=== PATIENT | female | born 1980 | race Caucasian/White ===

== ENCOUNTER 2020-12-01 13:05 | Emergency (ER) | payer MEDICAID, SELFPAY ==
[2020-12-01 13:06] VITALS: BP 103/70; PULSE 95; RESP 16; TEMP 36.6; O2SAT 97; BMI 41.9
[2020-12-01 14:59] VITALS: BP 103/66; PULSE 80; RESP 14; O2SAT 99
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
[2020-12-01 16:55] VITALS: BP 110/65; PULSE 68; RESP 16; TEMP 36.6; O2SAT 98
== END 2020-12-01 16:56 | disposition home or self-care (01) ==
PROVIDERS: Emergency Provider Emergency Medicine; PCP Family Medicine
DX: M54.5 Low back pain (principal)
CPT/HCPCS: 96372; 99281

== ENCOUNTER 2021-12-13 16:49 | Emergency (ER) | payer MEDICAID, SELFPAY ==
[2021-12-13 16:50] VITALS: BP 138/86; PULSE 112; RESP 16; TEMP 37; O2SAT 98; BMI 46.5
[2021-12-13 16:59] VITALS: BMI 46.7
[2021-12-13 17:21] LABS: Alanine Aminotransferase 37 U/L (12-78); Albumin Level 4.1 g/dl (3.5-5.0); Albumin/Globulin Ratio 1.4 (1.1-1.8); Alkaline Phosphatase 111 U/L (38-126); Aspartate Amino Transferase 38 U/L (14-36); Blood Urea Nitrogen 9 mg/dl (7-17); Calcium 9.7 mg/dl (8.4-10.2); Carbon Dioxide 22 mmol/L (22.0-30.0); Chloride 106 mmol/L (98-107); Creatinine Clearance Estimated 117 mL/min (50-200); Estimated Glomerular Filt Rate 111 ml/min (>60); GFR (African American) 134 ML/MIN (>60); Globulin 2.9 g/dL (1.3-3.2); Glucose 122 mg/dl (74-100); Sodium 138 mmol/L (136-145)
[2021-12-13 17:23] LABS: Bilirubin,Total < 0.1 mg/dl (0.2-1.3)
[2021-12-13 17:25] LABS: Basophils # 0.1 K/mm3 (0-0.2); Basophils % 0.5 % (0.1-2.0); Eosinophils # 0.3 K/mm3 (0.0-0.4); Eosinophils % 2.2 % (0.1-12.0); Hematocrit 41.9 % (37.0-47.0); Hemoglobin 13.4 g/dL (12.2-16.2); Lymphocytes # 2.6 K/mm3 (0.7-4.5); Lymphocytes % 22.1 % (10-50); Mean Corpuscular HGB Conc 31.9 g/dL (31.8-35.4); Mean Corpuscular Hemoglobin 26.8 pg (27.0-31.2); Mean Corpuscular Volume 83.9 fl (81-99); Mean Platelet Volume 8.1 fl (7.4-10.4); Monocytes # 0.6 K/mm3 (0.1-1.0); Monocytes % 5.2 % (1.7-9.3); Neutrophils # 8.2 K/mm3 (1.8-7.8); Neutrophils % 70.1 % (37.0-80.0); Platelet Count 301 K/mm3 (142-424); Red Blood Count 4.99 M/mm3 (4.20-5.40); White Blood Count 11.8 K/mm3 (4.8-10.8)
[2021-12-13 17:31] VITALS: BP 113/66; PULSE 95; RESP 17; O2SAT 96
--- NOTE | 2021-12-13 18:46 | PC.NURSE ---
pt states feeling better with meds given
[2021-12-13 19:01] VITALS: BP 120/89; PULSE 87; RESP 17; O2SAT 96
[2021-12-13 20:02] VITALS: BP 120/89; PULSE 87; RESP 16; TEMP 37; O2SAT 97
== END 2021-12-13 20:04 | disposition left against medical advice (07) ==
PROVIDERS: Emergency Provider Emergency Medicine
DX: G43.909 Migraine, unspecified, not intractable, without status migrainosus (principal); Z53.21 Procedure and treatment not carried out due to patient leaving prior to being seen by health care provider
CPT/HCPCS: 80053; 85025; 96374; 96375; 99211; J2405

== ENCOUNTER 2022-06-03 14:01 | Emergency (ER) | payer OTHER, MEDICAID, SELFPAY ==
[2022-06-03 14:15] VITALS: BP 151/94; PULSE 85; RESP 20; TEMP 36.8; O2SAT 98; BMI 45.9
--- NOTE | 2022-06-03 15:08 | EXP.UTC ---
Discharge Plan Disposition Patient Disposition: Home, Self-Care Condition: Good Prescriptions Prescriptions: New methylprednisolone [Medrol (Hiren)] 4 mg tablets,dose pack See Rx Instructions .Route .COMPLEX 6 Days Qty: 21 0RF Rx Instructions: taper pack; amoxicillin-pot clavulanate 875-125 mg Tablet 1 tab PO Q12H Qty: 20 0RF Referrals Follow up/Referrals: Blu Martin [Primary Care Provider] - See instructions Activity Restrictions/Add. Instructions Additional Instructions/Restrictions: *Monitor Temp, Over the counter Motrin or Tylenol as directed/as needed Tylenol every 4 hours and Motrin every 6 hours (as long as your family doctor has told you that you can take it) for fever or pain. and straight to ER if unable to lower temp less than 101.0 after medication given *Warm salt water gargles may help to soothe the throat *Throat Lozenges? *Warm fluids like tea with honey may help to soothe the throat? *Sleep elevated *Humidifier/Vaporizer Follow up IMMEDIATELY for new or worsening symptoms or no Noticeable improvement over the next 48-72 hours. 911 for difficulty breathing or swallowing Clinical Impressions Clinical Impression: Sinusitis Stand Alone Forms Stand Alone Forms: Work/School Release Instructions Patient Instructions: DI for Sinusitis, Sinusitis Discharge ED Provider: Idalmis Silveira [facility] [place] HPI General Stated complaint: cough Mode of Arrival: Ambulatory Source of Information: Patient Limitations: No Limitations Time Seen by Provider: 06/03/22 15:08 Description of Symptoms (Recalled from Triage Doc. by RN): dry cough, sinus HEENT Symptoms (Recalled from RN notes): Yes Resp Symptoms (Recalled from RN notes): No Skin Symptoms (Recalled from RN notes): No MS Symptoms (Recalled from RN notes): No Functional Status (Recalled from RN notes): n/a History of Present Illness Provider Complaint: Patient state that she has been having sinus pain and pressure for over a week and over the weekend she started with dry cough and feeling pressure in her ears so today she was having pressure behind her eyes so she came in to get Related Data Previous Rx's Medication Instructions Recorded amoxicillin 875 mg-potassium 1 tab PO Q12H #20 tabs 06/03/22 clavulanate 125 mg tablet methylprednisolone 4 mg tablets in See Rx Instructions .Route 06/03/22 a dose pack (Medrol (Hiren)) .COMPLEX 6 days #21 tabs Allergies Allergy/AdvReac Type Severity Reaction Status Date / Time No Known Allergies Allergy Verified 06/03/22 14:32 Worker's Comp Is this a Worker's Comp case?: No PFSH PFS Disclaimer: The information contained in this section may have been updated after the patient was seen, as this information can be updated by other users. Social History (Updated 12/13/21 @ 17:08 by Franchesca Pabon RN) Smoking Status: Current every day smoker alcohol intake: never current occupational status: employed Travel in the last 8 weeks: None ROS Obtained: Yes All systems reviewed & no additional complaints except as documented and Yes Systems reviewed as appropriate & no additional complaints except as documented Constitutional Constitutional: Reports system reviewed and no additional complaints, except as documented and Reports as per HPI Eyes Eyes: Reports system reviewed and no additional complaints, except as documented and Reports as per HPI ENT Ears, Nose, Mouth, and Throat: Reports system reviewed and no additional complaints, except as documented, Reports as per HPI, Reports otalgia, Reports sinus pain and Reports sinus pressure Cardiovascular Cardiovascular: Reports system reviewed and no additional complaints, except as documented and Reports as per HPI Respiratory Respiratory: Reports system reviewed and no additional complaints, except as documented, Reports as per HPI, Denies shortness of breath, Denies chest congestion and Reports cough Gastrointestinal Ga
[2022-06-03 15:34] VITALS: BP 151/94; PULSE 85; RESP 18; TEMP 36.8; O2SAT 98
== END 2022-06-03 15:34 | disposition home or self-care (01) ==
PROVIDERS: Emergency Provider Nurse Practitioner; PCP Family Medicine
DX: J32.9 Chronic sinusitis, unspecified (principal)
CPT/HCPCS: 99212; 99213; G0463

== ENCOUNTER 2022-10-18 12:10 | Emergency (ER) | payer MEDICAID, SELFPAY ==
[2022-10-18 12:12] VITALS: BP 137/83; PULSE 91; RESP 18; TEMP 36.7; O2SAT 98; BMI 44.4
--- NOTE | 2022-10-18 12:28 | EXP.UTC ---
Discharge Plan Disposition Patient Disposition: Home, Self-Care Condition: Good Prescriptions Prescriptions: New cephalexin 500 mg capsule 500 mg PO QID Qty: 40 0RF ibuprofen [ibuprofen] 600 mg tablet 600 mg PO Q6HP PRN (Reason: Mild Pain) Qty: 30 0RF No Action methylprednisolone [Medrol (Hiren)] 4 mg tablets,dose pack See Rx Instructions .Route .COMPLEX 6 Days Qty: 21 0RF Rx Instructions: taper pack; amoxicillin-pot clavulanate 875-125 mg Tablet 1 tab PO Q12H Qty: 20 0RF Referrals Follow up/Referrals: Blu Martin [Primary Care Provider] - See instructions Activity Restrictions/Add. Instructions Additional Instructions/Restrictions: Apply warm wet compresses to the affected site three or four times per day for 15 minutes as tolerated for the next few days. Take ibuprofen for pain. We sent in a prescription for some. Take the antibiotics as directed. Follow up with your regular doctor in 24 to 48 hours for a recheck. You have to follow up with your primary care provider for a recheck for anything associated with your breast. GO TO THE ER FOR ANY WORSENING SYMPTOMS Clinical Impressions Clinical Impression: Mastitis, right, acute Instructions Patient Instructions: Mastitis, DI for Mastitis, Ibuprofen, Cephalexin Discharge ED Provider: Mariano Diaz [facility] General Stated complaint: Swelling and sore on right breast Time Seen by Provider: 10/18/22 12:28 History of Present Illness Provider Complaint: She states that, since yesterday, she has had tenderness and warmth of an area on her right breast. She denies any fever/chills/malaise. She is not breast feeding. Related Data Previous Rx's Medication Instructions Recorded amoxicillin 875 mg-potassium 1 tab PO Q12H #20 tabs 06/03/22 clavulanate 125 mg tablet methylprednisolone 4 mg tablets in See Rx Instructions .Route 06/03/22 a dose pack (Medrol (Hiren)) .COMPLEX 6 days #21 tabs cephalexin 500 mg capsule 500 mg PO QID #40 caps 10/18/22 ibuprofen 600 mg tablet 600 mg PO Q6HP PRN Mild Pain #30 10/18/22 tabs Allergies Allergy/AdvReac Type Severity Reaction Status Date / Time No Known Allergies Allergy Verified 06/03/22 14:32 PFSH PFSH Disclaimer: The information contained in this section may have been updated after the patient was seen, as this information can be updated by other users. Social History Smoking Status: Current every day smoker alcohol intake: never current occupational status: employed Travel in the last 8 weeks: None ROS Obtained: Yes All systems reviewed & no additional complaints except as documented Constitutional Constitutional: Denies chills and Denies fever(s) Eyes Eyes: Denies eye discharge ENT Ears, Nose, Mouth, and Throat: Denies dizziness, Denies otalgia and Denies sore throat Cardiovascular Cardiovascular: Denies chest pain Respiratory Respiratory: Denies shortness of breath, Denies chest congestion, Denies cough, Denies stridor and Denies wheezing Gastrointestinal Gastrointestingal: Denies nausea or vomiting Musculoskeletal Musculoskeletal: Reports system reviewed and no additional complaints, except as documented and Denies arthralgias Integumentary/Breasts Skin/Breast: Reports as per HPI and Reports redness Neurologic Neurologic: Denies dizziness and Denies paresthesias Allergic/Immunologic Allergic/Immunologic: Denies wheezing Physical Exam General General appearance: alert and in no apparent distress Head Head exam: atraumatic, normocephalic and normal inspection Eye Eye exam: Present normal appearance, PERRL and EOMI ENT ENT exam: Present normal exam, normal oropharynx, mucous membranes moist, TM's normal bilaterally and normal external ear exam Neck Neck exam: Present normal inspection, full ROM and trachea midline; Absent meningismus or lymphadenopathy Chest Chest inspection: Present symmetric c
[2022-10-18 13:02] VITALS: BP 137/83; PULSE 91; RESP 18; TEMP 36.7; O2SAT 98
== END 2022-10-18 13:03 | disposition home or self-care (01) ==
PROVIDERS: Emergency Provider Nurse Practitioner Family; PCP Family Medicine
DX: N61.0 Mastitis without abscess (principal); F17.210 Nicotine dependence, cigarettes, uncomplicated
CPT/HCPCS: 99212; 99214; G0463

== ENCOUNTER 2022-12-24 07:02 | Emergency (ER) | payer MEDICAID, SELFPAY ==
[2022-12-24 07:03] VITALS: BP 134/85; PULSE 99; RESP 18; TEMP 36.4; O2SAT 98; BMI 50.1
--- NOTE | 2022-12-24 07:15 | PC.NURSE ---
DR GRACIA AT BEDSIDE
--- NOTE | 2022-12-24 07:18 | HMH.EDGENADL ---
Discharge Plan Disposition Patient Disposition: Home, Self-Care Condition: Good Prescriptions Prescriptions: New tbybqrfketkzdqd-nhbnhajdi-AC [Bromfed DM] 2-30-10 mg/5 mL syrup 5 ml PO Q6H PRN (Reason: cold symptoms) Qty: 118 0RF ondansetron 4 mg tablet,disintegrating 4 mg PO Q8H PRN (Reason: nausea and vomiting) 4 Days Qty: 12 0RF No Action methylprednisolone [Medrol (Hiren)] 4 mg tablets,dose pack See Rx Instructions .Route .COMPLEX 6 Days Qty: 21 0RF Rx Instructions: taper pack; amoxicillin-pot clavulanate 875-125 mg Tablet 1 tab PO Q12H Qty: 20 0RF cephalexin 500 mg capsule 500 mg PO QID Qty: 40 0RF ibuprofen [ibuprofen] 600 mg tablet 600 mg PO Q6HP PRN (Reason: Mild Pain) Qty: 30 0RF Referrals Follow up/Referrals: Provider,Referral, MD [Primary Care Provider] - See instructions Activity Restrictions/Add. Instructions Additional Instructions/Restrictions: You were evaluated in the emergency department today. At this time, your COVID, flu, and RSV test are pending. Please picker feeder your prescriptions at the pharmacy and use them as needed for symptoms. Take Tylenol and ibuprofen in addition to these medications as needed for symptoms. I also recommend taking lugx-lei-arxhtsy allergy medication and nasal spray. Follow-up with your primary care provider over the next week to ensure that you are improving. Return to the emergency department for new or worsening symptoms. Clinical Impressions Clinical Impression: Viral URI with cough Stand Alone Forms Stand Alone Forms: Work/School Release Instructions Patient Instructions: DI for Viral Upper Respiratory Infection -- Adult Discharge ED Provider: Muna Daley General Adult HPI General Chief complaint: Upper Respiratory Infection Stated complaint: chest congestion, GARCIA, runny nose Time Seen by Provider: 12/24/22 07:09 Mode of Arrival: Ambulatory Source of Information: Patient Limitations: No Limitations Description of Symptoms (Recalled from ER Triage Doc. by RN): PT REPORT CHEST CONGESTION, RUNNY NOSE, CHILLS, BODYACHES, NAUSE AND DIARRHEA THAT STARTED YESTERDAY History of Present Illness HPI narrative: This patient is a 42-year-old female who denies significant past medical history presenting to the emergency department for evaluation with concern for cough, congestion, headache, runny nose, chills, body aches, nausea, and diarrhea that started yesterday around 1:00 PM. She states that she took Tylenol Cold and sinus medication without good improvement. She states that her last dose of Tylenol was around 3:00 this morning. Nothing seems to make her symptoms better or worse. No other concerns noted at this time. Related Data Previous Rx's Medication Instructions Recorded amoxicillin 875 mg-potassium 1 tab PO Q12H #20 tabs 06/03/22 clavulanate 125 mg tablet methylprednisolone 4 mg tablets in See Rx Instructions .Route 06/03/22 a dose pack (Medrol (Hiren)) .COMPLEX 6 days #21 tabs cephalexin 500 mg capsule 500 mg PO QID #40 caps 10/18/22 ibuprofen 600 mg tablet 600 mg PO Q6HP PRN Mild Pain #30 10/18/22 tabs jycgycwqaiothog-kajmnrujlflsfgg-NV 5 ml PO Q6H PRN cold symptoms #118 12/24/22 2 mg-30 mg-10 mg/5 mL oral syrup mL (Bromfed DM) ondansetron 4 mg disintegrating 4 mg PO Q8H PRN nausea and 12/24/22 tablet vomiting 4 days #12 tabs Allergies Allergy/AdvReac Type Severity Reaction Status Date / Time No Known Allergies Allergy Verified 06/03/22 14:32 [facility] Disclaimer: The information contained in this section may have been updated after the patient was seen, as this information can be updated by other users. Social History Smoking Status: Current every day smoker alcohol intake: never current occupational status: employed Travel in the last 8 weeks: None ROS Obtained: Yes All systems reviewed & no additional complaints except
[2022-12-24 07:23] LABS: Coronavirus 19, PCR Not Detected (NotDetected); Influenza A, PCR Not Detected (NotDetected); Influenza B, PCR Not Detected (NotDetected)
[2022-12-24 08:08] VITALS: BP 120/71; PULSE 76; RESP 18; TEMP 36.6; O2SAT 99
== END 2022-12-24 08:12 | disposition home or self-care (01) ==
PROVIDERS: Emergency Provider Emergency Medicine
DX: R07.89 Other chest pain (principal); R51.9 Headache, unspecified; J06.9 Acute upper respiratory infection, unspecified; F17.200 Nicotine dependence, unspecified, uncomplicated
CPT/HCPCS: 87636; 96372; 99283